=== PATIENT | male | born 1995 | race American Indian/Alaskan Native ===

== ENCOUNTER 2016-09-20 15:14 | Emergency (ER) | payer SELFPAY ==
[2016-09-20 20:12] VITALS: BP 153/85
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
[2016-09-20] MEDS ORDERED: BOOSTRIX IM ONE ×2 (22:23→22:29)
[2016-09-20] MEDS: TENIVAC IM ONE (22:59)
--- NOTE | 2016-09-21 10:01 | XRay Report ---
RIGHT FOOT, 3 views: History: Right foot pain. The bony architecture is intact. Bony alignment is normal. No soft tissue abnormalities are seen. The joint spaces appear preserved. IMPRESSION: Normal right foot.
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
== END 2016-09-20 23:07 | disposition home or self-care (01) ==
LOC: ED 15:14
DX: S99.922A Unspecified injury of left foot, initial encounter (principal); S99.921A Unspecified injury of right foot, initial encounter; V09.20XA Pedestrian injured in traffic accident involving unspecified motor vehicles, initial encounter; Y93.9 Activity, unspecified; Y92.9 Unspecified place or not applicable; Y99.9 Unspecified external cause status; M79.605 Pain in left leg
CPT/HCPCS: 71020; 90471; 90714; 90715; 96372; 99284

== ENCOUNTER 2020-12-14 07:42 | Emergency (ER) | payer MEDICARE ==
[2020-12-14 08:07] VITALS: BP 122/82
--- NOTE | 2020-12-14 11:04 | Emergency Department Report ---
Chief Complaint: Sore Throat Stated Complaint: FACE HURTS Time Seen by Provider: 12/14/20 10:44 - HPI History of Present Illness: 25-year-old male patient presents to the emergency department with complaints of right-sided neck pain starting 3 hours ago. No preceding fall, trauma, injury. Patient states pain is worse when he swallows and when he moves. He did not take any medications prior to arrival. He does not have a primary care provider. Denies fever, chills, sore throat, dental pain, ear pain, congestion, cough, rash. Denies all other complaints at this time. - ROS Review of Systems: GENERAL: Negative for fever. CARDIOVASCULAR: Negative for chest pain. PULMONARY: Negative for shortness of breath. GASTROINTESTINAL: Negative for abdominal pain. MUSCULOSKELETAL: Positive for neck pain. NEUROLOGICAL: Negative for headache. INTEGUMENTARY: Negative for rash. - Exam Vital Signs: Vital Signs 12/14/20 08:06 Temperature 99.2 F Pulse Rate 70 Respiratory 18 Rate Blood Pressure 122/82 [Right] O2 Sat by Pulse 99 Oximetry Physical Exam: General: Awake, appropriately interactive, no acute distress. ENT: Pharyngeal exam is normal. Dental exam is normal. Otoscopic exam is normal. Neck: Supple. Full range of motion intact. Small tender swollen lymph node adjacent to the angle of the right mandible. Cardiovascular: Normal peripheral perfusion. Pulmonary: No respiratory distress. Patient is speaking normally without use of accessory muscles. Skin: No apparent rashes or lesions. Neurological: No facial asymmetry. Speech is clear. Follows commands. Patient is alert and oriented. Musculoskeletal: Moves all four extremities spontaneously with normal range of motion. Psych: Cooperative. Appropriate mood and affect. MSE screening note: Focused history and physical exam performed. Due to findings the following was ordered: ED Medical Decision Making - Medical Decision Making Patient presents to emergency department with complaints of a swollen lymph node along his neck/right side of his jaw. No obvious source of infection on physical exam. He is afebrile. Vital signs are stable. Airway is patent. No clinical indication for emergent diagnostic work-up. Patient will be discharged home with instructions for appropriate symptomatic treatment. Referred to primary care provider for close outpatient follow-up. BILLING/CODING: This patient encounter does not represent a certified medical emergency. ED Disposition for MSE Clinical Impression: Swelling of lymph node Disposition: TO HOME OR SELFCARE Is pt being admited?: No Does the pt Need Aspirin: No Condition: Stable Instructions: Lymphadenopathy Additional Instructions: Take Tylenol every 4 hours and Motrin every 8 hours as needed for pain/swelling. Rest. Drink plenty of fluids. Follow-up with primary care provider this week. Call today to schedule an appointment. See referral information below. Return to the emergency department immediately for new or worsening symptoms. Referrals: KATE GAY MD [Staff Physician] - 3-5 Days [facility] [Provider Group] - 3-5 Days Forms: Work/School Release Form(ED) Time of Disposition: 11:05
== END 2020-12-14 11:47 | disposition home or self-care (01) ==
LOC: ED 07:42
DX: R59.0 Localized enlarged lymph nodes (principal); M54.2 Cervicalgia
CPT/HCPCS: 99282

== ENCOUNTER 2021-02-13 12:40 | Emergency (ER) | payer MEDICARE ==
[2021-02-13 13:31] VITALS: BP 128/71
[2021-02-13] MEDS ORDERED: KETOROLAC 10 MG TAB PO ONE (13:40)
[2021-02-13] MEDS ORDERED: HYDROcodone/ACETAMINOPHEN 5-325 MG TAB PO ONE (13:40)
[2021-02-13] MEDS ORDERED: predniSONE 20 MG TAB PO ONE (13:41)
[2021-02-13] MEDS ORDERED: CYCLOBENZAPRINE 10 MG TAB PO ONE (13:42)
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
--- NOTE | 2021-02-13 14:42 | XRay Report ---
LUMBAR SPINE 3 VIEWS INDICATION: pain after injury 4 weeks COMPARISON: None. FINDINGS: No acute, displaced fracture is seen. Alignment is within normal limits. Disc space height is maintained. No significant degenerative changes. CONCLUSION: 1. No acute findings. Signer Name: Stefano Childress MD Signed: 02/13/2021 2:38 PM Workstation Name: [id number]
== END 2021-02-13 16:31 | disposition home or self-care (01) ==
LOC: ED 12:40
DX: M54.5 Low back pain (principal)
CPT/HCPCS: 72100; 99283; J7512